=== PATIENT | male | born 1975 | race Caucasian/White ===

== ENCOUNTER 2019-02-27 09:01 | Inpatient (IN) ==
[2019-02-27] MEDS ORDERED: DILAUDID IV ONE (09:26)
[2019-02-27] MEDS ORDERED: PHENERGAN IV ONE ×2 (09:27→11:32)
[2019-02-27] MEDS ORDERED: SODIUM CHLORIDE 0.9% INJ ONE ×2 (09:27→11:32)
[2019-02-27] MEDS ORDERED: NS 1,000 ML IV ONE (09:28)
[2019-02-27] MEDS ORDERED: DECADRON IV ONE (10:54)
[2019-02-27 11:01] LABS: AGAP 12; ALB/GLOB RATIO 1.8; ALBUMIN 4.5 g/dL (3.5-5.0); ALKALINE PHOSPHATASE 41 U/L (32-122); BUN 14 mg/dL (8-22); CALCIUM 9.7 mg/dL (8.8-10.2); CHLORIDE 105 mmol/L (98-107); COSMO 287; ESTIMATED GFR > 60; GLUCOSE 118 mg/dL (70-104); GOT 24 U/L (10-34); GPT 17 U/L (10-44); POTASSIUM 4.4 mmol/L (3.5-5.1); SODIUM 143 mmol/L (136-145); TCO2 26 mmol/L (25-35); TOTAL BILIRUBIN 1.87 mg/dL (0.20-1.00)
[2019-02-27 11:18] LABS: BASO# 0.02 X1000 (0.0-0.2); BASO% 0.2 % (0.0-0.8); EOS# 0.01 X1000 (0.0-0.7); EOS% 0.1 % (0.0-10.0); HEMATOCRIT 45.4 % (42.0-52.0); HEMOGLOBIN 15.6 g/dL (14.0-18.0); IMM GRAN# 0.02 X1000 (0.0-0.04); IMM GRAN% 0.2 % (0.0-0.5); LYMPH# 1.22 X1000 (1.2-3.4); LYMPH% 10.1 % (20.5-51.1); MCH 29.1 PG (27-31); MCHC 34.4 g/dL (33-37); MCV 84.7 FL (81-99); MONO% 5.8 % (1.7-9.3); MPV 11.4 FL (7.4-10.4); NEUT# 10.06 X1000 (1.4-6.5); NEUT% 83.6 % (42.2-75.2); PLT 213 X1000 (130-400); RBC 5.36 XMIL (4.7-6.1); RDW 12.6 % (11.5-14.5); WBC 12.03 X1000 (4.8-10.8)
[2019-02-27] MEDS ORDERED: ROCEPHIN 1 GM in NS 50 ML IV ONE (11:31)
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
[2019-02-27] MEDS ORDERED: PHENERGAN PO PRN (14:57)
[2019-02-27] MEDS ORDERED: LOVENOX SUBQ SCH (15:00)
--- NOTE | 2019-02-27 15:07 | Diag Imaging Result Doc PS360 ---
EXAM: CT HEAD W/O CONTRAST - 02/27/2019 HISTORY: headache/nausea/vomiting TECHNIQUE: CT head without contrast COMPARISON: 02/26/2019 FINDINGS: There is no evidence of intracranial hemorrhage, mass effect, midline shift, or hydrocephalus. There is no evidence of infarct, although acute infarcts may not be immediately visible. There is no evidence of skull fracture. Visualized portions of paranasal sinuses and mastoid air cells appear clear. IMPRESSION: No visible acute intracranial abnormality. No hemorrhage or mass effect. This exam was performed using automated exposure control, adjustment of mA or kV according to patient size, and/or use of iterative reconstruction technique. Electronically signed by Jayden Caro 02/27/2019 3:05 PM
[2019-02-27] MEDS ORDERED: SODIUM CHLORIDE 0.9% INJ SCH (15:15)
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
[2019-02-27] MEDS: INDERAL PO SCH (16:30)
[2019-02-27] MEDS: NS 1,000 ML IV SCH (16:31)
[2019-02-27] MEDS: PROTONIX PO SCH (16:31)
[2019-02-27] MEDS: MORPHINE IV PRN ×2 (16:47→23:18)
[2019-02-27] MEDS ORDERED: ELAVIL PO SCH (21:00)
[2019-02-28] MEDS: NS 1,000 ML IV SCH (02:48)
[2019-02-28 06:35] LABS: AGAP 9; ALB/GLOB RATIO 1.7; ALBUMIN 3.6 g/dL (3.5-5.0); ALKALINE PHOSPHATASE 32 U/L (32-122); BUN 14 mg/dL (8-22); CALCIUM 8.7 mg/dL (8.8-10.2); CHLORIDE 106 mmol/L (98-107); COSMO 282; CREATININE 0.8 mg/dL (0.7-1.2); ESTIMATED GFR > 60; GLUCOSE 108 mg/dL (70-104); GOT 17 U/L (10-34); GPT 12 U/L (10-44); POTASSIUM 4.3 mmol/L (3.5-5.1); SODIUM 141 mmol/L (136-145); TCO2 26 mmol/L (25-35); TOTAL BILIRUBIN 1.45 mg/dL (0.20-1.00); TOTAL PROTEIN 5.7 g/dL (6.3-8.3)
[2019-02-28] MEDS: PROTONIX PO SCH (06:58)
--- NOTE | 2019-02-28 09:36 | Diag Imaging Result Doc PS360 ---
EXAM: MRI BRAIN W/WO CONTRAST 02/28/2019 HISTORY: Post concussion syndrome TECHNIQUE: T1 sagittal, axial and post gadolinium-enhanced axial with coronal reformation, T2, FLAIR, DWI axial and coronal gradient echo. COMMENT: There are no previous MRI studies. There is no evidence of mass effect, bleed, or abnormal extra-axial fluid collection. There is no evidence of restricted diffusion. No abnormal gadolinium enhancement is present. IMPRESSION: Normal MRI of the brain. Electronically signed by Víctor Antunez 02/28/2019 9:34 AM
[2019-02-28] MEDS: INDERAL PO SCH (09:45)
[2019-02-28 11:58] VITALS: BP 125/73
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
== END 2019-02-28 13:07 | disposition home or self-care (01) | DRG 103 ==
LOC: ED 09:01 → 4N 09:02
PROVIDERS: ATTEND Internal Medicine
CPT/HCPCS: 70450; 70553; 80053; 84443; 85025; 97161; A9270; A9579; J1170; J1650; J2270; J2550; J7030